=== PATIENT | male | born 1990 | race Caucasian/White ===

== ENCOUNTER 2019-11-12 21:29 | Emergency (ER) | payer SELFPAY ==
[2019-11-12 21:25] VITALS: BP 123/96; PULSE 78; RESP 14; TEMP 36.2; O2SAT 97
--- NOTE | 2019-11-12 21:48 | ED.OVERDOSE ---
HPI - Overdose General Chief Complaint: Overdose Stated Complaint: drug use Time Seen by Provider: 11/12/19 21:30 Source: RN notes reviewed History of Present Illness HPI Narrative: Patient presents emergency department via EMS for possible overdose. Per the patient and the girlfriend the patient did fentanyl this evening as well as been drinking alcohol. He states he did do Xanax earlier today as well. Girlfriend states she called EMS this evening when the patient appeared to be less responsive. When EMS arrived the patient was awake and alert x3 answering questions appropriately. The patient did not receive any Narcan or any other medications. Patient's only current complaint is that he is nauseated. He denies any recent illness denies any headaches vision changes numbness or tingling in extremities chest pain shortness of breath or any other symptoms Related Data Allergies Allergy/AdvReac Type Severity Reaction Status Date / Time No Known Allergies Allergy Verified 11/12/19 21:31 Review of Systems Review of Systems: Narrative: Gen.: Denies fevers or chills Eyes: Denies eye pain or visual change ENT: Denies congestion Respiratory: Denies shortness of breath or cough CV: Denies chest pain or palpitations GI: Denies abdominal pain reports nausea vomiting denies diarrhea Musculoskeletal: Denies back pain or muscle pain Neuro: Denies numbness, tingling, weakness or focal weakness Skin: Denies rash Except as documented, all other systems reviewed and negative [facility] Past Medical History Medical History (Updated 11/13/19 @ 00:57 by Mayank Johansen DO) Patient denies significant medical history Social History Social History (Updated 11/12/19 @ 21:50 by Mayank Johansen DO) Smoking status: Current every day smoker Other substance usage details: Fentanyl Exam Narrative: Exam Narrative: APPEARANCE: No acute distress, nontoxic, resting in bed EYES: PERRL HEENT: Normocephalic, atraumatic, OMM RESPIRATORY: No respiratory distress Clear to auscultation bilaterally with no rhonchi wheezing or rales. CARDIOVASCULAR: Regular rate and rhythm without murmurs rubs or gallops. ABDOMINAL: Soft, nontender, nondistended, no rebound or guarding MUSCULOSKELETAl: Moves all extremities. No clubbing, cyanosis or edema. NEURO: Awake and alert x 3. Following commands, speech normal, no focal deficits SKIN:: Warm, dry. No rashes lesions or abrasions PSYCHIATRIC: Normal affect/mood, Course Course Emergency Course: Patient is remained in the emergency department for 3-1/2 hours. Patient states he is ready for discharge is remained awake and alert x3 able to get up and ambulate in ED with no difficulty. Significant other is present states she does feel comfortable patient returning home with her Discussed with patient results of workup and diagnosis. Discussed need for follow-up with primary care, proper use of medication, and reasons to return to the emergency department. Patient understands and agrees to current treatment plan patient did take information on rehabilitation programs and does state he has Narcan at home Vital Signs Vital signs: Vital Signs Temperature 97.1 F L 11/12/19 21:25 Pulse Rate 78 11/12/19 21:25 Respiratory Rate 14 11/12/19 21:25 Blood Pressure 123/96 H 11/12/19 21:25 Pulse Oximetry 97 11/12/19 21:25 Temperature 97.1 F L 11/12/19 21:25 Pulse Rate 76 11/13/19 00:36 Respiratory Rate 19 11/13/19 00:36 Blood Pressure 107/44 L 11/13/19 00:36 Pulse Oximetry 98 11/13/19 00:36 MDM - Overdose Lab Data Result diagrams: 11/12/19 22:01 11/12/19 22:01 Labs: Lab Results 11/12/19 11/12/19 11/12/19 Range/Units 22:01 22:01 22:01 WBC 8.8 (4.5-10.0) K/mm3 RBC 4.85 (4.6-6.20) M/mm3 Hgb 14.8 (14.0-18.0) g/dL Hct 43.4 (42.0-52.0) % MCV 89.5 (80-100) fl MCH 30.5 (26-34) pg MCHC 34.1 (32-36) g/dl RDW 12.7 (11.5-1
[2019-11-12] MEDS: ONDANSETRON INJ 4 MG/2 ML VIAL IV PUSH (21:57)
[2019-11-12] MEDS: SODIUM CHLORIDE 0.9% IV 1,000 ML 999 ML IV CONT (21:57)
[2019-11-12 22:09] LABS: Basophils Absolute Auto 0.1 K/mm3 (0.0-0.1); Basophils Percent Auto 0.8 % (0.2-1.2); Eosinophils Absolute Auto 0.2 K/mm3 (0-0.3); Hematocrit 43.4 % (42.0-52.0); Hemoglobin 14.8 g/dL (14.0-18.0); Immature Granulocyte Absolute 0.02 K/mm3 (0.00-0.031); Immature Granulocyte Percent A 0.2 % (0-0.5); Lymphocytes Absolute Auto 3.33 K/mm3 (0.9-3.2); Lymphocytes Percent Auto 37.8 % (18.3-44.2); Mean Corpuscular HGB Conc 34.1 g/dl (32-36); Mean Corpuscular Hemoglobin 30.5 pg (26-34); Mean Corpuscular Volume 89.5 fl (80-100); Mean Platelet Volume 10.8 fl (7.4-10.4); Monocytes Absolute Auto 0.5 K/mm3 (0.1-0.6); Monocytes Percent Auto 6.1 % (2.6-8.5); Neutrophils Absolute Auto 4.7 K/mm3 (1.3-6.7); Neutrophils Percent Auto 53.1 % (45.5-73.1); Platelet Count Result 236 k/mm3 (150-375); Red Blood Count 4.85 M/mm3 (4.6-6.20); Red Cell Distribution Width 12.7 % (11.5-14.5); White Blood Count 8.8 K/mm3 (4.5-10.0)
[2019-11-12 22:13] VITALS: BP 98/71; PULSE 76; RESP 20; O2SAT 99
[2019-11-12 22:21] LABS: Ethanol 201 mg/dL (<10)
[2019-11-12 22:22] LABS: Alanine Aminotransferase 90 U/L (4-50); Albumin Level 4.3 g/dL (3.5-5.1); Alkaline Phosphatase 53 U/L (38-126); Aspartate Amino Transferase 91 U/L (17-59); Bilirubin,Total 0.3 mg/dL (0.2-1.3); Blood Urea Nitrogen 12 mg/dL (9-20); Calcium 8.5 mg/dL (8.4-10.2); Carbon Dioxide 26 mmol/L (22-30); Chloride 107 mmol/L (98-107); Estimated Glomerular Filt Rate > 60; Glucose 107 mg/dL (75-110); Potassium 3.7 mmol/L (3.4-5.0); Sodium 140 mmol/L (137-145)
[2019-11-12 23:16] VITALS: BP 97/45; PULSE 68; RESP 15; O2SAT 99
[2019-11-12 23:32] VITALS: PULSE 72
[2019-11-13 00:36] VITALS: BP 107/44; PULSE 76; RESP 19; O2SAT 98
--- NOTE | 2019-11-13 00:50 | PC.NURSE ---
Patient requesting to leave at this time or he is going to rip his IV out. Patient is alert and oriented and able to ambulate with a steady gait. Patient also has a ride home. CECILLE Johansen notified.
[2019-11-13 01:03] VITALS: BP 111/74; PULSE 93; RESP 14; TEMP 36.6; O2SAT 99
== END 2019-11-13 01:08 | disposition home or self-care (01) ==
PROVIDERS: Emergency Provider Emergency Medicine
DX: F11.10 Opioid abuse, uncomplicated (principal); F10.129 Alcohol abuse with intoxication, unspecified; Y90.7 Blood alcohol level of 200-239 mg/100 ml; F17.200 Nicotine dependence, unspecified, uncomplicated
CPT/HCPCS: 36415; 80053; 80307; 85025; 96361; 96374; 99284; J2405; J7030